=== PATIENT | male | born 1990 | race American Indian/Alaskan Native ===

== ENCOUNTER 2018-03-18 04:58 | Emergency (ER) | payer SELFPAY ==
[2018-03-18 05:22] VITALS: BP 152/101
== END 2018-03-18 05:50 | disposition left against medical advice (07) ==
LOC: ED 04:58
DX: J02.9 Acute pharyngitis, unspecified (principal); Z53.21 Procedure and treatment not carried out due to patient leaving prior to being seen by health care provider
CPT/HCPCS: 87116; 87430